=== PATIENT | male | born 1980 | race African-American/Black ===

== ENCOUNTER 2020-09-08 14:24 | Emergency (ER) | payer MEDICAID, SELFPAY ==
[2020-09-08 14:31] VITALS: BP 122/79; PULSE 95; RESP 18; O2SAT 100; BMI 25.0
--- NOTE | 2020-09-08 14:34 | HMH.EDUTC ---
[facility] [place] Clinical Impression: Bronchitis, Viral syndrome, Exposure to COVID-19 virus Disposition: Home, Self-Care Condition on Discharge: Good Instructions: Preventing the Spread of Coronavirus Discharge Instructions Additional Instructions: Drink plenty of fluids. Take tylenol for pain or fever. Return if you begin to have difficulty breathing. Follow up with your regular doctor. GO TO THE ER FOR ANY WORSENING SYMPTOMS Prescriptions: Brompheniramine/Pseudoephed/Dm [Bromfed Dm Cough Syrup] 5 ml PO Q6HP PRN #240 syrup PRN Reason: Cough [facility]: [facility] Ondansetron [Zofran 4mg ODT] 4 mg PO Q8HP PRN #12 tab.rapdis PRN Reason: Nausea Transmission Status: Received by [facility] Azithromycin [Z-Zachary 250mg Tab*] 250 mg PO UD DOSE PK #6 tab Transmission Status: [facility] Referrals: PCP,No [Primary Care Provider] - Forms: Work/School Release Time of Disposition: 14:59 Medical Decision Making - Medical Records Medical records reviewed: No: I reviewed the patient's medical records. - Dennis Inquiry Pt receiving controlled substance: No Vital Signs: 09/08/20 14:31 Pulse Rate [Radial] 95 H Respiratory Rate 18 Blood Pressure [Right Arm] 122/79 Blood Pressure Mean [Right Arm] 93 Blood Pressure Source [Right Arm] Automatic Cuff Blood Pressure Position [Right Arm] Sitting 02 Sat by Pulse Oximetry 100 Oxygen Delivery Method Room Air - Lab Data Lab results reviewed: Yes: I reviewed the patient's lab results. Orders (Tests/Meds): ORDERS Category Date Time Status Covid-19 Nasal PCR ([facility]) Routine Lab 09/08/20 14:42 [place] [facility] [place] - General Stated complaint: sore throat, headache, cough, chills Time Seen by Provider: 09/08/20 14:34 - History of Present Illness Provider Complaint: He reports that for the past 2 days he has had chilling, body aches, cough and malaise. - Related Data Previous Rx's Medication Instructions Recorded Amoxicillin/Potassium Clav 1 tab PO Q12H #20 tab 07/17/19 [Augmentin 875-125 Tablet] Azithromycin [Z-Zachary 250mg Tab*] 250 mg PO UD DOSE PK #6 tab 09/08/20 Brompheniramine/Pseudoephed/Dm 5 ml PO Q6HP PRN #240 syrup 09/08/20 [Bromfed Dm Cough Syrup] Ondansetron [Zofran 4mg ODT] 4 mg PO Q8HP PRN #12 tab.rapdis 09/08/20 Allergies Allergy/AdvReac Type Severity Reaction Status Date / Time No Known Allergies Allergy Verified 07/17/19 10:42 [facility] History - Hepatitis A Screen Attestation statement:: This patient has been screened for Hepatitis A risk factors. I have reviewed the patient's past medical history: Yes - Social History Smoking Status: Current every day smoker Tobacco Type: cigarettes # Packs/Day (cigarettes): 1 Alcohol Intake: never Occupational Status: employed Housing: house ROS Obtained: Yes All systems reviewed & no additional complaints - Constitutional Constitutional: Reports system reviewed and no additional complaints, except as docu - Eyes Eyes: Reports system reviewed and no additional complaints, except as docu - ENT Ears, Nose, Mouth, and Throat: Reports system reviewed and no additional complaints, except as docu - Cardiovascular Cardiovascular: Reports system reviewed and no additional complaints, except as docu - Respiratory Respiratory: Yes system reviewed and no additional complaints, except as docu - Gastrointestinal Gastrointestingal: Reports: system reviewed and no additional complaints, except as docu Physical Exam - General General appearance: alert, in no apparent distress - Head Head exam: atraumatic, normocephalic, normal inspection - Eye Eye exam: Present: normal appearance, PERRL, EOMI - ENT ENT exam: Present: normal exam, normal oropharynx, mucous membranes moist, TM's normal bilaterally, normal external ear exam - Neck Neck exam: Present: normal inspection, full ROM, trachea mid
[2020-09-08 15:17] VITALS: BP 122/79; PULSE 95; RESP 18; TEMP 36.7; O2SAT 100
[2020-09-08 19:02] LABS: UTC Strep Screen (Rapid) Negative (Negative)
[2020-09-08 19:03] LABS: UTC Influenza A Antigen Negative (Negative)
[2020-09-08 19:04] LABS: UTC Influenza B Antigen Negative (Negative)
== END 2020-09-08 15:18 | disposition home or self-care (01) ==
PROVIDERS: Emergency Provider Nurse Practitioner Family
DX: Z20.828 Contact with and (suspected) exposure to other viral communicable diseases (principal); J20.9 Acute bronchitis, unspecified; F17.210 Nicotine dependence, cigarettes, uncomplicated
CPT/HCPCS: 87804; 87880; 99202; U0003

== ENCOUNTER 2020-10-18 22:04 | Emergency (ER) | payer OTHER, SELFPAY ==
[2020-10-18 22:05] VITALS: BP 153/87; PULSE 67; RESP 16; TEMP 36.8; O2SAT 97; BMI 26.4
--- NOTE | 2020-10-18 22:28 | CT_ITS ---
PROCEDURE: CT ABDOMEN PELVIS WO CON CLINICAL INDICATION: Bilateral flank pain, history of stones COMPARISON: No exams were available for comparison TECHNIQUE: Axial images obtained with sagittal and coronal reformats. All CT scans at the facility use one or more dose reduction, viz: automated exposure control, ma/kV adjustment per patient size (including targeted exams where dose is matched to indication, i.e. head), or iterative reconstruction technique. FINDINGS: LOWER THORAX: No acute finding ABDOMEN & PELVIS: The liver, spleen, adrenal glands, pancreas, and kidneys have an unremarkable appearance. No evidence of appendicitis. No intestinal obstruction or free air. Multiple unopacified bowel loops in the abdomen or pelvis which could obscure or mimic pathology. If symptoms persist, consider repeat exam with IV and oral contrast.. Urinary bladder is slightly thickened and may be due to nondistention versus cystitis. There are minimal osteoarthritic changes of the hips. No acute bony findings. IMPRESSION: 1. Minimal thickening of the urinary bladder wall which could be due to nondistention or cystitis. Please correlate with clinical parameters. 2. Otherwise negative Dictated by: Gary Lane MD 10/19/2020 07:[address] MD in [place] 10/19/2020 07:36
--- NOTE | 2020-10-18 22:28 | CT_ITS ---
PROCEDURE: CT HEAD/BRAIN WO CON CLINICAL INDICATION: headache Severe headache COMPARISON: CT CT HEAD/BRAIN WO CON from 07/17/2019 TECHNIQUE: Axial images obtained. All CT scans at the facility use one or more dose reduction, viz: automated exposure control, ma/kV adjustment per patient size (including targeted exams where dose is matched to indication, i.e. head), or iterative reconstruction technique. FINDINGS: No midline shift, mass effect, intracranial hemorrhage, hydrocephalus, or extra-axial fluid collection is evident. The calvarium has an unremarkable appearance. No mastoid effusion. No sinus air-fluid level. There is mild mucosal thickening of the ethmoid sinuses. Mild prominence of the adenoids. IMPRESSION: No acute intracranial finding Dictated by: Gary Lane MD 10/19/2020 07:[address] MD in [place] 10/19/2020 07:17
[2020-10-18 22:32] LABS: Microscopic, Urine URINE MICROSCOPIC (MICROSCOPIC)
[2020-10-18 22:33] LABS: Appearance,Urine CLEAR (Clear); Bilirubin,Urine Negative (Negative); Blood, Urine TRACE-I (Negative); Color,Urine YELLOW (Yellow); Glucose,Urine (UA) Negative (Negative); Ketones,Urine Negative (Negative); Leukocyte Esterase,Urine Negative (Negative); Nitrate,Urine Negative (Negative); Protein,Urine Negative (Negative); Specific Gravity, Urine 1.025 (1.005-1.030); Urobilinogen,Urine 0.2 EU/dl (0.2)
[2020-10-18 22:52] LABS: Basophils # 0.1 K/mm3 (0-0.2); Basophils % 0.9 % (0.1-2.0); Eosinophils # 0.4 K/mm3 (0.0-0.4); Eosinophils % 6.5 % (0.1-12.0); Hematocrit 50.5 % (42.0-52.0); Lymphocytes # 2.2 K/mm3 (0.7-4.5); Lymphocytes % 40.9 % (10-50); Mean Corpuscular HGB Conc 33.7 g/dL (31.8-35.4); Mean Corpuscular Hemoglobin 28.9 pg (27.0-31.2); Mean Corpuscular Volume 85.9 fl (80-94); Mean Platelet Volume 7.6 fl (7.4-10.4); Monocytes # 0.5 K/mm3 (0.1-1.0); Neutrophils # 2.3 K/mm3 (1.8-7.8); Neutrophils % 42.7 % (37.0-80.0); Platelet Count 233 K/mm3 (142-424); Red Blood Count 5.88 M/mm3 (4.60-6.20); Red Cell Distribution Width 13.9 % (11.5-17.5); White Blood Count 5.5 K/mm3 (4.8-10.8)
[2020-10-18 22:57] LABS: Chloride 104 mmol/L (98-107)
[2020-10-18 22:58] LABS: Potassium 3.7 mmoL/L (3.5-5.1); Sodium 139 mmol/L (136-145)
[2020-10-18 23:00] LABS: Alanine Aminotransferase 57 U/L (12-78); Aspartate Amino Transferase 65 U/L (17-59); Bilirubin,Total 0.8 mg/dl (0.2-1.3); Blood Urea Nitrogen 14 mg/dl (9-20); Creatinine Clearance Estimated 102 mL/min (50-200); Estimated Glomerular Filt Rate 67 ml/min (>60); GFR (African American) 81 ML/MIN (>60)
[2020-10-18 23:01] LABS: Albumin Level 4.6 g/dl (3.5-5.0); Albumin/Globulin Ratio 1.4 (1.1-1.8); Alkaline Phosphatase 116 U/L (38-126); Anion Gap 12.7 mEq/L (5-15); Calcium 9.1 mg/dl (8.4-10.2); Carbon Dioxide 26 mmol/L (22.0-30.0); Globulin 3.3 g/dL (1.3-3.2); Glucose 86 mg/dl (74-100); Lipase 189 U/L (23-300); Total Protein,Serum 7.9 g/dl (6.3-8.2)
--- NOTE | 2020-10-18 23:11 | PC.NURSE ---
pt to RAD
--- NOTE | 2020-10-19 00:12 | HMH.EDGENADL ---
ED Disposition Clinical Impression: Headache Qualifiers: Headache type: tension-type Headache chronicity pattern: acute headache Intractability: not intractable Qualified Code(s): G44.209 - Tension-type headache, unspecified, not intractable Disposition: Home, Self-Care Condition on Discharge: Good Instructions: Tension Headache Prescriptions: Ondansetron [Zofran 4mg ODT] 4 mg PO TIDP PRN #8 tab PRN Reason: Nausea Prescription Printed Referrals: PCP,No [Primary Care Provider] - - Critical Care Critical Care Time: No Attestation: On 10/18/20, the high probability of a clinically significant, sudden or life threatening deterioration of the following system(s) required my full and direct attention, intervention and personal management. The time I documented below is in addition to time spent performing reported procedures but includes the following listed in this critical care notation. Medical Decision Making - Medical Records Medical records reviewed: Yes: I reviewed the patient's medical records. - Dennis Inquiry Pt receiving controlled substance: No Vital Signs: 10/18/20 22:05 10/19/20 00:30 Temperature 98.3 F 98.1 F Temperature Source Oral Oral Pulse Rate 53 L Pulse Rate [Left Radial] 67 Respiratory Rate 16 12 Blood Pressure 118/75 Blood Pressure [Right Arm] 153/87 H Blood Pressure Mean [Right Arm] 109 Blood Pressure Source Automatic Cuff Blood Pressure Source [Right Arm] Automatic Cuff Blood Pressure Position Sitting Blood Pressure Position [Right Arm] Sitting 02 Sat by Pulse Oximetry 97 Oxygen Delivery Method Room Air Room Air - Lab Data Lab Results 10/18/20 22:10: Urine Color Yellow, Urine Appearance Clear, Urine pH 6.0, Ur Specific [place] 1.025, Urine Protein Negative, Urine Glucose (UA) Negative, Urine Ketones Negative, Urine Blood Trace-i, Urine Nitrate Negative, Urine Bilirubin Negative, Urine Urobilinogen 0.2, Ur Leukocyte Esterase Negative, Urine WBC 5-10 10/18/20 22:40: WBC 5.5, RBC 5.88, Hgb 17.0, Hct 50.5, MCV 85.9, MCH 28.9, MCHC 33.7, RDW 13.9, Plt Count 233, MPV 7.6, Neut % (Auto) 42.7, Lymph % (Auto) 40.9, [place] % (Auto) 9.0, Eos % (Auto) 6.5, Baso % (Auto) 0.9, Neut # (Auto) 2.3, Lymph # (Auto) 2.2, [place] # (Auto) 0.5, Eos # (Auto) 0.4, Baso # (Auto) 0.1 10/18/20 22:40: Sodium 139, Potassium 3.7, Chloride 104, Carbon Dioxide 26, Anion Gap 12.7, BUN 14, Creatinine 1.20, Estimated Creat Clear 102, Estimated GFR 67, Est GFR ( Amer) 81, Glucose 86, Calcium 9.1, Total Bilirubin 0.8, AST 65 H, ALT 57, Alkaline Phosphatase 116, Total Protein 7.9, Albumin 4.6, Globulin 3.3 H, Albumin/Globulin Ratio 1.4, Lipase 189 Result diagrams: 10/18/20 22:40 10/18/20 22:40 Orders (Tests/Meds): ED MEDICATIONS Discontinued Medications Generic Name Dose Route Start Last Admin Trade Name Freq PRN Reason Stop Dose Admin Diphenhydramine HCl 25 mg 10/18/20 22:28 10/18/20 22:58 Diphenhydramine 50mg/Ml Vial IV 10/18/20 22:29 25 mg ONCE ONE Administration Sodium Chloride 1,000 mls @ 999 mls/hr 10/18/20 22:30 10/18/20 22:58 Sod Chlor 0.9% 1000ml Bag IV 10/18/20 23:30 999 mls/hr .Q1H1M SHANELL Administration Ketorolac Tromethamine 30 mg 10/18/20 22:28 10/18/20 22:58 Ketorolac 30mg/Ml Vial IV 10/18/20 22:29 30 mg ONCE ONE Administration Prochlorperazine Edisylate 10 mg 10/18/20 22:28 10/18/20 22:58 Prochlorperazine 10mg/2ml Vial IV 10/18/20 22:29 10 mg ONCE ONE Administration ORDERS Category Date Time Status CT abdomen pelvis wo con Stat Cat Scan 10/18/20 22:[address] head/brain wo con Stat Cat Scan 10/18/20 22:28 Taken Medical Decision Narrative: The patient is a 39 year old male who presents with headache, flank pain and transient hematuria. He is awake, alert, stable. Neurologically intact. Has mild left flank pain but no other exam findings. Labs including CBC, CMP, lipase, UA ordered and unremarkable. UA shows trac
--- NOTE | 2020-10-19 00:24 | ECG_ITS ---
APPROVED REPORT Exam: Resting ECG HR:57 bpm ECG Measurements Heart Rate 57 AXES MS 148 P 71 QRSd 96 QRS 76 QT 442 T 73 QTc 430 Conclusion Sinus bradycardia Early repolarization Otherwise normal ECG Electronically signed by : Piero Galo, 10/20/2020 17:10:54
[2020-10-19 00:30] VITALS: BP 118/75; PULSE 53; RESP 12; TEMP 36.7; O2SAT 100
== END 2020-10-19 00:33 | disposition home or self-care (01) ==
PROVIDERS: Emergency Provider Emergency Medicine
DX: G44.209 Tension-type headache, unspecified, not intractable (principal); R31.9 Hematuria, unspecified; F17.210 Nicotine dependence, cigarettes, uncomplicated
CPT/HCPCS: 70450; 74176; 80053; 81001; 83690; 85025; 93005; 96365; 96375; 99283

== ENCOUNTER 2021-06-02 18:12 | Emergency (ER) | payer OTHER, SELFPAY ==
[2021-06-02 18:13] VITALS: BP 137/84; PULSE 82; RESP 18; TEMP 37.1; O2SAT 97; BMI 25.7
--- NOTE | 2021-06-02 18:32 | CT_ITS ---
PROCEDURE INFORMATION: Exam: CT Abdomen And Pelvis Without Contrast Exam date and time: 06/02/2021 6:32 PM Age: 40 years old Clinical indication: Abdominal pain; Patient HX: Right flank pain x24 hours, HX renal stones; Additional info: Left flank pain TECHNIQUE: Imaging protocol: Computed tomography of the abdomen and pelvis without contrast. Radiation optimization: All CT scans at this facility use at least one of these dose optimization techniques: automated exposure control; mA and/or kV adjustment per patient size (includes targeted exams where dose is matched to clinical indication); or iterative reconstruction. COMPARISON: CT ABDOMEN PELVIS WO CON 10/18/2020 11:19 PM FINDINGS: Lungs: Lung bases are clear. Liver: Normal. No mass. Gallbladder and bile ducts: Normal. No calcified stones. No ductal dilation. Pancreas: Normal. No ductal dilation. Spleen: Normal. No splenomegaly. Adrenal glands: Normal. No mass. Kidneys and ureters: Punctate nonobstructive right nephrolithiasis. Punctate nonobstructive left nephrolithiasis. Renal stones measure less than 2 mm. No obstructive uropathy. The kidneys are otherwise unremarkable. Stomach and bowel: No bowel obstruction or significant bowel wall thickening. There is excessive colonic stool content. Appendix: A normal appendix is identified. Intraperitoneal space: Unremarkable. No free air. No significant fluid collection. Vasculature: There are numerous benign phleboliths in the pelvis. Lymph nodes: Unremarkable. No enlarged lymph nodes. Urinary bladder: The bladder is decompressed. Reproductive: Unremarkable as visualized. Bones/joints: No acute skeletal abnormality or aggressive osseous lesion. Note is made of prominent posterior disc bulging at L4-L5, causing mild central canal stenosis and mild bilateral neural foraminal stenosis. Soft tissues: Unremarkable. IMPRESSION: 1. Punctate nonobstructive bilateral nephrolithiasis. 2. No obstructive uropathy. 3. Severe constipation. 4. Incidental findings as detailed above.
[2021-06-02 18:48] LABS: Basophils % 0.9 % (0.1-2.0); Eosinophils # 0.5 K/mm3 (0.0-0.4); Eosinophils % 11.8 % (0.1-12.0); Hematocrit 46.7 % (42.0-52.0); Hemoglobin 15.3 g/dL (14.1-18.0); Lymphocytes # 2.1 K/mm3 (0.7-4.5); Lymphocytes % 46.8 % (10-50); Mean Corpuscular HGB Conc 32.7 g/dL (31.8-35.4); Mean Corpuscular Hemoglobin 27.7 pg (27.0-31.2); Mean Corpuscular Volume 84.6 fl (80-94); Mean Platelet Volume 7.7 fl (7.4-10.4); Monocytes # 0.3 K/mm3 (0.1-1.0); Monocytes % 5.9 % (1.7-9.3); Neutrophils # 1.6 K/mm3 (1.8-7.8); Neutrophils % 34.6 % (37.0-80.0); Platelet Count 231 K/mm3 (142-424); Red Blood Count 5.52 M/mm3 (4.60-6.20); Red Cell Distribution Width 14.1 % (11.5-17.5); White Blood Count 4.5 K/mm3 (4.8-10.8)
[2021-06-02 18:52] LABS: Chloride 105 mmol/L (98-107); Potassium 4.1 mmoL/L (3.5-5.1); Sodium 140 mmol/L (136-145)
[2021-06-02 18:54] LABS: Blood Urea Nitrogen 13 mg/dl (9-20); Creatinine Clearance Estimated 119 mL/min (50-200); Estimated Glomerular Filt Rate 82 ml/min (>60); GFR (African American) 100 ML/MIN (>60)
[2021-06-02 18:55] LABS: Alanine Aminotransferase 92 U/L (12-78); Albumin Level 4.9 g/dl (3.5-5.0); Albumin/Globulin Ratio 1.6 (1.1-1.8); Alkaline Phosphatase 110 U/L (38-126); Anion Gap 12.1 mEq/L (5-15); Aspartate Amino Transferase 107 U/L (17-59); Bilirubin,Total 0.5 mg/dl (0.2-1.3); Calcium 8.7 mg/dl (8.4-10.2); Carbon Dioxide 27 mmol/L (22.0-30.0); Globulin 3.1 g/dL (1.3-3.2); Glucose 89 mg/dl (74-100)
[2021-06-02 18:55] LABS: Microscopic, Urine URINE MICROSCOPIC (MICROSCOPIC)
[2021-06-02 18:58] LABS: Appearance,Urine SL CLOUDY (Clear); Bilirubin,Urine Negative (Negative); Blood, Urine 3+ (Negative); Color,Urine YELLOW (Yellow); Glucose,Urine (UA) Negative (Negative); Ketones,Urine Negative (Negative); Leukocyte Esterase,Urine Negative (Negative); Nitrate,Urine Negative (Negative); Protein,Urine Negative (Negative); Specific Gravity, Urine >= 1.030 (1.005-1.030); Urobilinogen,Urine 0.2 EU/dl (0.2)
--- NOTE | 2021-06-02 19:00 | HMH.EDGENADL ---
ED Disposition Clinical Impression: Low back pain Qualifiers: Chronicity: acute Back pain laterality: right Sciatica presence: without sciatica Qualified Code(s): M54.5 - Low back pain Rhabdomyolysis Qualifiers: Rhabdomyolysis type: non-traumatic Qualified Code(s): M62.82 - Rhabdomyolysis Constipation Qualifiers: Constipation type: unspecified constipation type Qualified Code(s): K59.00 - Constipation, unspecified Disposition: Home, Self-Care Condition on Discharge: Good Instructions: DI for Low Back Pain, DI for Rhabdomyolysis, DI for Constipation Additional Instructions: Rest and drink plenty fluids. No weightlifting for 1 week. Tylenol or ibuprofen for pain. You are being provided with a list of physicians available for follow-up of your condition. Please call a physician on this list to arrange a follow-up appointment as soon as possible. For constipation, take 1 bottle of magnesium citrate followed by [facility] for 5 days. Return to the emergency department if worsening of symptoms. Prescriptions: Magnesium Citrate [Magnesium Citrate 10oz Bottle] 1 bottle PO ONCE #1 bottle Transmission Status: Pending to [facility] polyethylene glycoL 3350 [Miralax 17gm Packet] 17 gm PO DAILY #5 packet Transmission Status: Pending to [facility] Referrals: Provider,Referral, [Primary Care Provider] - - Critical Care Critical Care Time: No Attestation: On 06/02/21, the high probability of a clinically significant, sudden or life threatening deterioration of the following system(s) required my full and direct attention, intervention and personal management. The time I documented below is in addition to time spent performing reported procedures but includes the following listed in this critical care notation. Medical Decision Making - Medical Records Medical records reviewed: Yes: I reviewed the patient's medical records. MR Comment: Reviewed emergency department at this facility 10/18/2020 for headache, flank pain, intermittent hematuria. Urine showed trace blood but CT scan was unremarkable except for minimal thickening of the bladder. - Dennis Inquiry Pt receiving controlled substance: No Dennis was queried for this patient: Yes Vital Signs: 06/02/21 18:13 06/02/21 19:35 Temperature 98.8 F Temperature Source Oral Pulse Rate 61 Pulse Rate [Right] 82 Respiratory Rate 18 Blood Pressure 120/79 Blood Pressure [Right Arm] 137/84 Blood Pressure Mean [Right Arm] 101 02 Sat by Pulse Oximetry 97 99 Oxygen Delivery Method Room Air - Lab Data Lab Results 06/02/21 18:30: Lipase 36 06/02/21 18:31: WBC 4.5 L, RBC 5.52, Hgb 15.3, Hct 46.7, MCV 84.6, MCH 27.7, MCHC 32.7, RDW 14.1, Plt Count 231, MPV 7.7, Neut % (Auto) 34.6 L, Lymph % (Auto) 46.8, [place] % (Auto) 5.9, Eos % (Auto) 11.8, Baso % (Auto) 0.9, Neut # (Auto) 1.6 L, Lymph # (Auto) 2.1, [place] # (Auto) 0.3, Eos # (Auto) 0.5 H, Baso # (Auto) 0.0 06/02/21 18:31: Sodium 140, Potassium 4.1, Chloride 105, Carbon Dioxide 27, Anion Gap 12.1, BUN 13, Creatinine 1.00, Estimated Creat Clear 119, Estimated GFR 82, Est GFR ( Amer) 100, Glucose 89, Calcium 8.7, Total Bilirubin 0.5, AST 107 H, ALT 92 H, Alkaline Phosphatase 110, Total Protein 8.0, Albumin 4.9, Globulin 3.1, Albumin/Globulin Ratio 1.6 06/02/21 18:31: Total Creatine Kinase 2506 H* 06/02/21 18:32: Urine Color Yellow, Urine Appearance Sl cloudy, Urine pH 6.0, Ur Specific [place] >= 1.030, Urine Protein Negative, Urine Glucose (UA) Negative, Urine Ketones Negative, Urine Blood 3+, Urine Nitrate Negative, Urine Bilirubin Negative, Urine Urobilinogen 0.2, Ur Leukocyte Esterase Negative, Urine RBC Occasional, Urine WBC 5-10, Ur Squamous Epith Cells Occasional, Urine Bacteria Trace Result diagrams: 06/02/21 18:31 06/02/21 18:31 Orders (Tests/Meds): ED MEDICATIONS Discontinued Medications Generic Name Dose Route Start Last Admin Trade Name Freq PRN Reason Stop Dose Admin K
[2021-06-02 19:10] LABS: Bacteria,Urine Trace /lpf; RBC,Urine Occasional #/hpf (0-3); Squamous Epithelial Cell,Urine Occasional #/hpf (0-5)
[2021-06-02 19:14] LABS: Lipase 36 U/L (23-300)
[2021-06-02 19:35] VITALS: BP 120/79; PULSE 61; O2SAT 99
[2021-06-02 19:41] LABS: Creatine Kinase 2506 U/L (55-170)
[2021-06-02 20:25] LABS: Barbiturates Screen,Urine Negative ng/ml (<200)
[2021-06-02 20:26] LABS: Benzodiazepines Screen,Urine Negative ng/ml (<200)
[2021-06-02 20:27] LABS: Amphetamine/Metha Screen,Urine Negative ng/ml (<1000); Cannabinoid Screen,Urine Negative ng/ml (<50)
[2021-06-02 20:28] LABS: Cocaine Screen,Urine Negative ng/ml (<300)
[2021-06-02 20:29] LABS: Methadone Screen,Urine Negative ng/ml (<300); Opiate Screen,Urine Negative ng/ml (<300)
[2021-06-02 20:31] LABS: Phencyclidine Screen,Urine Negative ng/ml (<25)
[2021-06-02 22:27] VITALS: BP 146/89; PULSE 66; RESP 16; TEMP 37.1; O2SAT 100
== END 2021-06-02 22:32 | disposition home or self-care (01) ==
PROVIDERS: Emergency Provider Emergency Medicine
DX: M54.5 Low back pain (principal); M62.82 Rhabdomyolysis; K59.00 Constipation, unspecified; F17.210 Nicotine dependence, cigarettes, uncomplicated
CPT/HCPCS: 74176; 80053; 80305; 81001; 82550; 83690; 85025; 96365; 96366; 96375; 99283

== ENCOUNTER 2021-08-01 19:13 | Emergency (ER) | payer OTHER, SELFPAY ==
[2021-08-01 19:14] VITALS: BP 136/83; PULSE 103; RESP 16; TEMP 37.6; O2SAT 96; BMI 25.0
--- NOTE | 2021-08-01 19:40 | HMH.EDUTC ---
[facility] [place] Clinical Impression: Bronchitis Sinusitis Qualifiers: Sinusitis location: unspecified location Chronicity: acute Recurrence: non-recurrent Qualified Code(s): J01.90 - Acute sinusitis, unspecified Disposition: Home, Self-Care Condition on Discharge: Good Instructions: Sinusitis, DI for Sinusitis Additional Instructions: Drink plenty of fluids. Take tylenol or ibuprofen for pain or fever. Take the medications as directed. Follow up with your regular doctor. GO TO THE ER FOR ANY WORSENING SYMPTOMS The cough medication (promethazine dm) will make you drowsy, so don't drive or operate heavy machinery after taking it. Prescriptions: Promethazine/Dextromethorphan [Promethazine-Dm Syrup] 5 ml PO Q6HP PRN #240 ml PRN Reason: Cough Transmission Status: Received by [facility] predniSONE [Prednisone 20mg Tab] 20 mg PO BID 4 Days #8 tab Transmission Status: Received by [facility] Benzonatate [Tessalon Perle 100mg Cap] 100 mg PO TIDP PRN #30 cap PRN Reason: Cough Transmission Status: Received by [facility] Azithromycin [Z-Zachary 250mg Tab*] 250 mg PO UD DOSE PK #6 tab Transmission Status: Received by [facility] Referrals: Provider,Referral, [Primary Care Provider] - Forms: Work/School Release Time of Disposition: 19:48 Medical Decision Making - Medical Records Medical records reviewed: No: I reviewed the patient's medical records. - Dennis Inquiry Pt receiving controlled substance: No Vital Signs: 08/01/21 19:14 08/01/21 20:09 Temperature 99.7 F H 99.8 F H Temperature Source Oral Oral Pulse Rate 100 H Pulse Rate [Right] 103 H Respiratory Rate 16 16 Blood Pressure 136/80 Blood Pressure [Right Arm] 136/83 Blood Pressure Mean [Right Arm] 100 Blood Pressure Source Automatic Cuff Blood Pressure Source [Right Arm] Automatic Cuff Blood Pressure Position Sitting Blood Pressure Position [Right Arm] Sitting 02 Sat by Pulse Oximetry 96 Oxygen Delivery Method Room Air Room Air - Lab Data Lab results reviewed: Yes: I reviewed the patient's lab results. Lab Results 08/01/21 19:49: Chlamy pneumoniae PCR Not detected, Adenovirus (PCR) Not detected, B. pertussis DNA (PCR) Not detected, Coronavirus OC43 (PCR) Not detected, Coronavirus HKU1 (PCR) Not detected, Coronavirus 229E (PCR) Not detected, SARS-CoV-2 (PCR) Not detected, Coronavirus NL63 (PCR) Not detected, Human Metapneumovir PCR Not detected, Influenza A (H1) PCR Not detected, Influ A (H1N1/09) PCR Not detected, Influenza A (H3) PCR Not detected, Influenza Type A (PCR) Not detected, Influenza Type B (PCR) Not detected, M. pneumoniae (PCR) Not detected, Parainfluenza 1 (PCR) Not detected, Parainfluenza 2 (PCR) Not detected, Parainfluenza 3 (PCR) Not detected, Parainfluenza 4 (PCR) Not detected, RSV (PCR) Not detected, Entero/Rhino (PCR) Detected A [facility] [place] HPI - General Stated complaint: sinus Time Seen by Provider: 08/01/21 19:40 Mode of Arrival: Ambulatory Source of Information: Patient Limitations: No Limitations Description of Symptoms (Recalled from Triage Doc. by RN): pt advises he has felt bad since yesterday morning. Pt c/o cough and congestion HEENT Symptoms (Recalled from RN notes): Yes (cough, congestion) Resp Symptoms (Recalled from RN notes): No Skin Symptoms (Recalled from RN notes): No MS Symptoms (Recalled from RN notes): No Functional Status (Recalled from RN notes): na - History of Present Illness Provider Complaint: He states that for the past 2 days he has had worsening sinus congestion and chest congestion. He denies any fever or chills. He denies any known covid-19 exposure. He usually gets a sinus infection at this time of the year when the seasons change. - Related Data Previous Rx's Medication Instructions Recorded Amoxicillin/Potassium Clav 1 tab PO Q12H #20 tab 07/17/19 [Augmentin 875-125 Tablet] Azithromycin [Z-Zachary 250mg Tab*]
[2021-08-01 19:55] LABS: Adenovirus,PCR Not Detected (NotDetected); Bordetella Pertussis Not Detected (NotDetected); Chlamydophila Pneumoniae, PCR Not Detected (NotDetected); Coronavirus 19, PCR Not Detected (NotDetected); Coronavirus 229E Not Detected (NotDetected); Coronavirus NL63 Not Detected (NotDetected); Coronavirus OC43 Not Detected (NotDetected); Coronovirus HKU1,PCR Not Detected (NotDetected); Human Metapneumovirus Not Detected (NotDetected); Influenza A, PCR Not Detected (NotDetected); Influenza AH1, 2009 Not Detected (NotDetected); Influenza AH1, PCR Not Detected (NotDetected); Influenza AH3,PCR Not Detected (NotDetected); Influenza B, PCR Not Detected (NotDetected); Mycoplasma Pneumoniae, PCR Not Detected (NotDetected); Parainfluenza 1, PCR Not Detected (NotDetected); Parainfluenza 2, PCR Not Detected (NotDetected); Parainfluenza 3, PCR Not Detected (NotDetected); Parainfluenza 4, PCR Not Detected (NotDetected); Respiratory Syncytial Virus Not Detected (NotDetected)
[2021-08-01 20:09] VITALS: BP 136/80; PULSE 100; RESP 16; TEMP 37.7; O2SAT 98
[2021-08-01 21:52] LABS: Rhinovirus/Enterovirus Detected (NotDetected)
== END 2021-08-01 20:11 | disposition home or self-care (01) ==
PROVIDERS: Emergency Provider Nurse Practitioner Family
DX: J20.9 Acute bronchitis, unspecified (principal); J01.90 Acute sinusitis, unspecified; Z20.822 Contact with and (suspected) exposure to COVID-19; F17.210 Nicotine dependence, cigarettes, uncomplicated
CPT/HCPCS: 87581; 87632; 87798; 99202; C9803; G0463; U0003; U0005

== ENCOUNTER → 2021-11-09 12:21 | Outpatient (CLI) | payer BC, OTHER, SELFPAY | PROVIDERS: Visit Provider Nurse Practitioner | DX: Z20.822 Contact with and (suspected) exposure to COVID-19 (principal) | CPT/HCPCS: C9803; U0003; U0005 ==

== ENCOUNTER → 2021-11-15 17:53 | Outpatient (CLI) | payer BC, OTHER, SELFPAY | PROVIDERS: Visit Provider Nurse Practitioner | DX: Z20.822 Contact with and (suspected) exposure to COVID-19 (principal) | CPT/HCPCS: C9803; U0003; U0005 ==

== ENCOUNTER → 2021-12-27 11:24 | Outpatient (CLI) | payer BC, OTHER, SELFPAY ==
[2021-12-27 14:19] LABS: Chloride 104 mmol/L (98-107); Potassium 4.5 mmoL/L (3.5-5.1); Sodium 139 mmol/L (136-145)
[2021-12-27 14:21] LABS: Blood Urea Nitrogen 14 mg/dl (9-20); Estimated Glomerular Filt Rate 82 ml/min (>60); GFR (African American) 99 ML/MIN (>60)
[2021-12-27 14:22] LABS: Alanine Aminotransferase 30 U/L (12-78); Albumin Level 5.3 g/dl (3.5-5.0); Albumin/Globulin Ratio 1.8 (1.1-1.8); Alkaline Phosphatase 96 U/L (38-126); Anion Gap 13.5 mEq/L (5-15); Aspartate Amino Transferase 47 U/L (17-59); Bilirubin,Total 0.6 mg/dl (0.2-1.3); Calcium 8.6 mg/dl (8.4-10.2); Carbon Dioxide 26 mmol/L (22.0-30.0); Glucose 86 mg/dl (74-100); Magnesium 2.1 mg/dl (1.6-2.3); Phosphorous 3.6 mg/dl (2.5-4.5); Total Protein,Serum 8.3 g/dl (6.3-8.2)
[2021-12-27 14:51] LABS: Thyroid Stimulating Hormone 0.98 uIU/mL (0.465-4.68)
[2021-12-27 15:09] LABS: Vitamin B12 499 pg/mL (239-931)
[2021-12-27 16:57] LABS: 25-OH Vitamin D, Total 36.9 ng/mL (30-100)
== END ==
PROVIDERS: Visit Provider Family Medicine
DX: R53.83 Other fatigue (principal); N50.819 Testicular pain, unspecified; R82.998 Other abnormal findings in urine; E55.9 Vitamin D deficiency, unspecified
CPT/HCPCS: 36415; 80053; 82306; 82607; 83735; 84100; 84443

== ENCOUNTER 2022-01-10 02:31 | Emergency (ER) | payer BC, OTHER, SELFPAY ==
[2022-01-10 02:32] VITALS: BP 145/88; PULSE 87; RESP 18; TEMP 36.6; O2SAT 98; BMI 25.0
--- NOTE | 2022-01-10 02:57 | CT_ITS ---
PROCEDURE INFORMATION: Exam: CT Abdomen And Pelvis Without Contrast Exam date and time: 01/10/2022 3:09 AM Age: 41 years old Clinical indication: Abdominal pain; Flank; Other: Bilateral; Patient HX: HX kidney stones; Additional info: Flank pain/kidney stone TECHNIQUE: Imaging protocol: Computed tomography of the abdomen and pelvis without contrast. Radiation optimization: All CT scans at this facility use at least one of these dose optimization techniques: automated exposure control; mA and/or kV adjustment per patient size (includes targeted exams where dose is matched to clinical indication); or iterative reconstruction. COMPARISON: CT ABDOMEN PELVIS WO CON 06/02/2021 7:01 PM FINDINGS: Lungs: Minimal dependent atelectasis. Liver: Unremarkable noncontrast appearance. Gallbladder and bile ducts: No wall thickening. No calcified stones. No biliary dilation. Pancreas: Unremarkable noncontrast appearance. Spleen: Normal. No splenomegaly. Adrenal glands: Normal. No mass. Kidneys and ureters: Punctate nonobstructing bilateral renal caliceal calculi. No hydronephrosis. Stomach and bowel: No obstruction. No abnormal bowel wall thickening. Appendix: Normal. Intraperitoneal space: No pneumoperitoneum. No ascites. Vasculature: Unremarkable. No abdominal aortic aneurysm. Lymph nodes: No enlarged lymph nodes. Urinary bladder: No wall thickening. Reproductive: Unremarkable as visualized. Bones/joints: Chronic disc bulging and posterior endplate spurring at L4-L5, resulting in igle-aa-maymjuiv spinal canal stenosis and right greater than left lateral recess and neural foraminal narrowing. This is similar to prior. No acute fracture. Soft tissues: Unremarkable. IMPRESSION: 1. No acute finding or specific etiology for symptoms identified. No obstructive uropathy. 2. Punctate nonobstructing bilateral renal caliceal calculi.
[2022-01-10 03:10] LABS: Basophils # 0.1 K/mm3 (0-0.2); Basophils % 2.5 % (0.1-2.0); Eosinophils # 0.3 K/mm3 (0.0-0.4); Eosinophils % 10.3 % (0.1-12.0); Hematocrit 48.5 % (42.0-52.0); Hemoglobin 15.4 g/dL (14.1-18.0); Lymphocytes # 1.5 K/mm3 (0.7-4.5); Lymphocytes % 46.9 % (10-50); Mean Corpuscular HGB Conc 31.9 g/dL (31.8-35.4); Mean Corpuscular Hemoglobin 28.5 pg (27.0-31.2); Mean Corpuscular Volume 89.5 fl (80-94); Mean Platelet Volume 8.5 fl (7.4-10.4); Monocytes # 0.3 K/mm3 (0.1-1.0); Monocytes % 8.2 % (1.7-9.3); Neutrophils % 32.2 % (37.0-80.0); Platelet Count 209 K/mm3 (142-424); Red Blood Count 5.42 M/mm3 (4.60-6.20); Red Cell Distribution Width 13.7 % (11.5-17.5); White Blood Count 3.2 K/mm3 (4.8-10.8)
--- NOTE | 2022-01-10 03:10 | [facility].EDUROGM ---
ED Disposition Clinical Impression: Flank pain, acute, Lumbar radicular pain Disposition: Home, Self-Care Condition on Discharge: Good Instructions: DI for Low Back Pain Additional Instructions: use meds and call pcp for follow up Prescriptions: predniSONE [Prednisone 20mg Tab] 20 mg PO BID #10 tab Transmission Status: Pending to [id number] - Critical Care Critical Care Time: No Attestation: On 01/10/22, the high probability of a clinically significant, sudden or life threatening deterioration of the following system(s) required my full and direct attention, intervention and personal management. The time I documented below is in addition to time spent performing reported procedures but includes the following listed in this critical care notation. Medical Decision Making - Medical Records Medical records reviewed: Yes: I reviewed the patient's medical records. - Dennis Inquiry Pt receiving controlled substance: No Vital Signs: 01/10/22 02:32 Temperature 97.9 F Temperature Source Oral Pulse Rate [Left Radial] 87 Respiratory Rate 18 Blood Pressure [Right Arm] 145/88 H Blood Pressure Mean [Right Arm] 107 02 Sat by Pulse Oximetry 98 Oxygen Delivery Method Room Air - Lab Data Lab results reviewed: Yes: I reviewed the patient's lab results. Lab Results 01/10/22 03:02: WBC 3.2 L, RBC 5.42, Hgb 15.4, Hct 48.5, MCV 89.5, MCH 28.5, MCHC 31.9, RDW 13.7, Plt Count 209, MPV 8.5, Neut % (Auto) 32.2 L, Lymph % (Auto) 46.9, [place] % (Auto) 8.2, Eos % (Auto) 10.3, Baso % (Auto) 2.5 H, Neut # (Auto) 1.0 L, Lymph # (Auto) 1.5, [place] # (Auto) 0.3, Eos # (Auto) 0.3, Baso # (Auto) 0.1 01/10/22 03:02: Sodium 137, Potassium 4.1, Chloride 106, Carbon Dioxide 28, Anion Gap 7.1, BUN 13, Creatinine 1.00, Estimated Creat Clear 114, Estimated GFR 82, Est GFR ( Amer) 99, Glucose 88, Calcium 8.1 L, Total Bilirubin 0.6, AST 39, ALT 23, Alkaline Phosphatase 117, Total Protein 7.1, Albumin 4.4, Globulin 2.7, Albumin/Globulin Ratio 1.6 01/10/22 03:02: ESR 1 01/10/22 03:02: C-Reactive Protein < 0.3, Procalcitonin 0.041 Result diagrams: 01/10/22 03:02 01/10/22 03:02 Orders (Tests/Meds): ED MEDICATIONS Generic Name Dose Route Start Last Admin Trade Name Freq PRN Reason Stop Dose Admin Sodium Chloride 1,000 mls @ 999 mls/hr 01/10/22 03:00 01/10/22 03:01 Sod Chlor 0.9% 1000ml Bag IV 01/10/22 04:00 999 mls/hr .Q1H1M SHANELL Administration Discontinued Medications Generic Name Dose Route Start Last Admin Trade Name Freq PRN Reason Stop Dose Admin Ketorolac Tromethamine 30 mg 01/10/22 02:59 01/10/22 03:01 Ketorolac 30mg/Ml Vial IV 01/10/22 03:00 30 mg ONCE ONE Administration ORDERS Category Date Time Status UA [Urinalysis and Microscopic] Stat Lab 01/10/22 02:57 Ordered - CT Data CT Scan: Abdomen, Pelvis Time Received: 04:[address] Reviewed: Yes: I have viewed the radiologist's interpretation Preliminary Findings: Abnormal (see report ) Medical Decision Narrative: has pain with no def renal colic and has abdn l/s spine which may be etiology Male Urogenital HPI - General Chief complaint: Urogenital-Male Stated complaint: Pain in kidneys,difficulty urinating Time Seen by Provider: 01/10/22 03:10 Mode of Arrival: Ambulatory Source of Information: Patient, Medical Record Limitations: No Limitations Description of Symptoms (Recalled from ER Triage Doc. by RN): PT REPORTS FLANK PAIN SIMILAR TO PREVIOUS KIDNEY STONES. PT REPORTS DIFFICULTY VOIDING. - History of Present Illness HPI Narrative: pt with bilat back pain which started tonight and no fever or rash and no trauma - hx of kidney stones in past MD Complaint: other (back pain) Onset (ago): hour(s) Severity: moderate Reports: denies other symptoms - Related Data Previous Rx's Medication Instructions Recorded predniSONE [Prednisone 20mg 20 mg PO BID #10 tab 01/10/22 Tab] Allergies Allerg
[2022-01-10 03:15] LABS: Chloride 106 mmol/L (98-107); Potassium 4.1 mmoL/L (3.5-5.1); Sodium 137 mmol/L (136-145)
[2022-01-10 03:17] LABS: Alanine Aminotransferase 23 U/L (12-78); Alkaline Phosphatase 117 U/L (38-126); Aspartate Amino Transferase 39 U/L (17-59); Bilirubin,Total 0.6 mg/dl (0.2-1.3); Blood Urea Nitrogen 13 mg/dl (9-20); Creatinine Clearance Estimated 114 mL/min (50-200); Estimated Glomerular Filt Rate 82 ml/min (>60); GFR (African American) 99 ML/MIN (>60)
[2022-01-10 03:18] LABS: Albumin Level 4.4 g/dl (3.5-5.0); Albumin/Globulin Ratio 1.6 (1.1-1.8); Anion Gap 7.1 mEq/L (5-15); Calcium 8.1 mg/dl (8.4-10.2); Carbon Dioxide 28 mmol/L (22.0-30.0); Globulin 2.7 g/dL (1.3-3.2); Glucose 88 mg/dl (74-100); Total Protein,Serum 7.1 g/dl (6.3-8.2)
[2022-01-10 03:30] VITALS: BP 128/70; PULSE 65; O2SAT 99
[2022-01-10 03:48] LABS: C-Reactive Protein < 0.3 mg/L (0-4)
[2022-01-10 03:58] LABS: Erythrocyte Sedimentation Rate 1 mm/hr (0-15)
[2022-01-10 04:01] LABS: Procalcitonin 0.041 ng/mL (0.0-2.0)
[2022-01-10 04:43] VITALS: BP 125/81; PULSE 76; RESP 16; TEMP 36.6; O2SAT 98
== END 2022-01-10 04:46 | disposition home or self-care (01) ==
PROVIDERS: Emergency Provider Emergency Medicine; PCP Family Medicine
DX: M54.50 Low back pain, unspecified (principal); R31.9 Hematuria, unspecified; Z87.442 Personal history of urinary calculi; F17.210 Nicotine dependence, cigarettes, uncomplicated
CPT/HCPCS: 74176; 80053; 84145; 85025; 85651; 86140; 96365; 96375; 99284